=== PATIENT | male | born 1935 | race Caucasian/White ===

== ENCOUNTER 2018-09-15 07:24 | Day surgery (SDC) | payer MEDICARE, BC ==
[2018-09-15] MEDS ORDERED: Sodium Chloride 0.9% 10 ML Syringe FLUSH PRN (07:25)
[2018-09-15] MEDS ORDERED: Lidocaine 1%/Sod Bicarbonate in NS 8.4% 1 ML Syringe IDERM PRN (07:25)
[2018-09-15] MEDS ORDERED: Sodium Chloride 0.9% 1,000 ML IV SCH (07:30)
--- NOTE | 2018-09-15 08:05 | PCM.PREANE ---
Preanesthetic Assessment - Anesthesia/Transfusion/Family Hx Anesthesia History: Prior Anesthesia Without Reaction Family History of Anesthesia Reaction: No - Review of Systems General: No Symptoms, Other (CRD stage 3) Pulmonary: No Symptoms Cardiovascular: Other (HTN, CAD with CABG and AVR EKG 08/08/18 sr with 1avb with PAC) Gastrointestinal: No Symptoms Neurological: No Symptoms Other: Reports: Thyroid Problems - Physical Assessment NPO Status Date: 09/14/18 NPO Status Time: 21:00 Pulse: 63 O2 Sat by Pulse Oximetry: 98 Respiratory Rate: 16 Blood Pressure: 158/63 ASA Class: 3 Mental Status: Alert & Oriented x3 Airway Class: Mallampati = 2 Dentition: Reports: Normal Dentition Thyro-Mental Finger Breadths: 3 Mouth Opening Finger Breadths: 3 ROM/Head Extension: Full Lungs: Clear to Auscultation, Normal Respiratory Effort - Allergies Allergies/Adverse Reactions: Allergies Allergy/AdvReac Type Severity Reaction Status Date / Time levofloxacin [From Levaquin] Allergy Pain Verified 03/18/15 22:17 - Blood Blood Available: No Product(s) Available: None - Anesthesia Plan Pre-Op Medication Ordered: None Beta Navid: Metoprolol Med Last Dose Date: 09/15/18 Med Last Dose Time: 05:00 - Acknowledgements Anesthesia Type Planned: MAC Pt an Appropriate Candidate for the Planned Anesthesia: Yes Alternatives and Risks of Anesthesia Discussed w Pt/Guardian: Yes Pt/Guardian Understands and Agrees with Anesthesia Plan: Yes PreAnesthesia Questionnaire Other Dermatologic History: eczema - HOME MEDS Home Medications: Home Meds Dutasteride [Avodart] 0.5 mg PO DAILY 03/18/15 [History] RX: Aspirin 1 tab PO DAILY 03/18/15 [History] RX: Doxazosin [Cardura] 4 mg PO BID 03/18/15 [History] RX: Lisinopril 10 mg PO DAILY 03/18/15 [History] RX: Metoprolol Tartrate 50 mg PO BID 03/18/15 [History] RX: Simvastatin [Zocor] 10 mg PO DAILY 03/18/15 [History] RX: Spironolactone [Aldactone] 25 mg PO DAILY 03/18/15 [History] Triamcinolone Acetonide [Nasacort AQ [place]] 1 puff NASBOTH BID 03/18/15 [History ] - CURRENT (IN HOUSE) MEDS Current Meds: Current Medications Sodium Chloride (Normal Saline) 1,000 mls @ 125 mls/hr IV ASDIRECTED PREMA Stop: 09/15/18 23:00 Lidocaine/Sodium Bicarbonate (Buffered Lidocaine 1% In Ns 8.4%) 0.25 ml IDERM ONETIME PRN PRN Reason: Prior to IV Start Stop: 09/15/18 23:00 Sodium Chloride (Saline Flush) 10 ml FLUSH ASDIRECTED PRN PRN Reason: Keep Vein Open Stop: 09/15/18 23:00
[2018-09-15] MEDS ORDERED: Propofol 200 MG/20 ML SDV ONE (08:14)
[2018-09-15] MEDS ORDERED: ePHEDrine/Normal Saline 25 MG/5 ML Syringe ONE (08:43)
--- NOTE | 2018-09-15 09:10 | PCM48HPAN ---
Post Anesthesia Note - EVALUATION WITHIN 48HRS OF ANESTHETIC Vital Signs in Normal Range: Yes Patient Participated in Evaluation: Yes Respiratory Function Stable: Yes Airway Patent: Yes Cardiovascular Function Stable: Yes Hydration Status Stable: Yes Pain Control Satisfactory: Yes Nausea and Vomiting Control Satisfactory: Yes Mental Status Recovered: Yes Pulse Rate: 63 Resp Rate: 16 Blood Pressure: 158/63
--- NOTE | 2018-09-15 09:12 | PCM.OPNOTE ---
- General Post-Op/Procedure Note Date of Surgery/Procedure: 09/15/18 Operative Procedure(s): colonosocopy with polypectomy Pre Op Diagnosis: positive cologuard Post-Op Diagnosis: Same Anesthesia Technique: MAC Primary Surgeon: Varun Fields EBL in mLs: 0 Complications: None Condition: Good
[2018-09-15 09:43] VITALS: BP 130/78
--- NOTE | 2018-09-16 07:14 | OR ---
DATE OF OPERATION: 09/15/2018 SURGEON: Varun Fields MD PREOPERATIVE DIAGNOSIS: Positive Cologuard. POSTOPERATIVE DIAGNOSIS: Positive Cologuard. OPERATION PERFORMED: Colonoscopy to cecum with removal of polyp by hot cautery snare at 60 cm, but was not retrieved. It was completely removed and hemoclips placed on the polypectomy site. ESTIMATED BLOOD LOSS: None and no bleeding. ANESTHESIA: Done under IV sedation. DESCRIPTION OF PROCEDURE: The patient was taken to the endoscopy room, placed in a supine position, connected to monitoring equipment, given IV sedation, placed in the left lateral position. Perianal area was inspected and was normal. Rectal exam showed good sphincter tone. A video Olympus colonoscope was then introduced into the rectum and threaded up without problem to the cecum, where the appendicular orifice and ileocecal valve were noted. Prep was excellent. [place] Cleansing Score grade A and the scope slowly withdrawn showing the cecum, ascending colon, transverse colon, descending colon, sigmoid colon, and rectum. At about 60 cm, a sessile diminutive polyp was noted. This was lassoed with cautery snare and removed and it popped away and efforts to retrieve it were unsuccessful. The polypectomy site was then secured with 2 clips. He had history of starting Xarelto. The patient tolerated the procedure, sent to the recovery room in a stable condition, and will be followed up in the clinic. MMBEE /[id number]
== END 2018-09-15 09:45 | disposition home or self-care (01) ==
LOC: JD.SDS 07:24
PROVIDERS: ATTEND Surgery
DX: R19.5 Other fecal abnormalities (principal); K63.5 Polyp of colon; I12.9 Hypertensive chronic kidney disease with stage 1 through stage 4 chronic kidney disease, or unspecified chronic kidney disease; N18.3 Chronic kidney disease, stage 3 (moderate); I48.0 Paroxysmal atrial fibrillation; Z87.891 Personal history of nicotine dependence; Z79.01 Long term (current) use of anticoagulants; Z80.0 Family history of malignant neoplasm of digestive organs; Z88.1 Allergy status to other antibiotic agents
CPT/HCPCS: 45385; J2704; J7040; J7050; 00812

== ENCOUNTER 2018-12-14 12:11 | Emergency (ER) | payer MEDICARE, BC ==
[2018-12-14 12:25] VITALS: BP 131/96
--- NOTE | 2018-12-14 13:06 | EDM.PDOC ---
ED HPI GENERAL MEDICAL PROBLEM - General Chief Complaint: Lower Extremity Injury/Pain Stated Complaint: RIGHT LEG INJURY Time Seen by Provider: 12/14/18 12:20 Source of Information: Reports: Patient, Family History Limitations: Reports: No Limitations - History of Present Illness INITIAL COMMENTS - FREE TEXT/NARRATIVE: The patient presents with left low back pain and right ankle pain and swelling. He was opening a gate yesterday and it was to heavy and it knocked him back and he fell. He did not hit his head or hurt his neck. He did not have much pain to the right ankle but he does have swelling and ecchymosis now. He now has pain to his left low back. He has no chest pain or shortness of breath. He has no abdominal pain, nausea or vomiting. He has no hip pain. He is on eliquis for A-fib. Onset: Sudden Duration: Day(s): Location: Reports: Back, Lower Extremity, Right (right ankle) Quality: Reports: Sharp Severity: Mild Improves with: Reports: Immobilization Worsens with: Reports: Movement Context: Reports: Trauma (fall) Associated Symptoms: Reports: No Other Symptoms Right Lower Ankle Pain Score (Numeric/FACES): 2 - Related Data Allergies Allergy/AdvReac Type Severity Reaction Status Date / Time levofloxacin [From Levaquin] AdvReac Other Verified 12/14/18 12:25 Home Meds: Home Meds Aspirin 81 mg PO DAILY 03/18/15 [History] Doxazosin [Cardura] 4 mg PO BID 03/18/15 [History] Dutasteride [Avodart] 0.5 mg PO DAILY 03/18/15 [History] Simvastatin [Zocor] 20 mg PO QPM 03/18/15 [History] Spironolactone [Aldactone] 25 mg PO DAILY 03/18/15 [History] Triamcinolone Acetonide [Nasacort AQ [place]] 1 puff NASBOTH BID 03/18/15 [History ] Ca/D3/Mag#11/Zinc/Driving Teacher/Jaya/Bor [Caltrate Plus Tablet] 1 tab PO QPM 09/15/18 [ History] Fish Oil/DHA/EPA [Fish Oil 1,200 MG] 1,200 mg PO DAILY 09/15/18 [History] L.acidoph,Paracasei, B.lactis [Probiotic] 1 cap PO DAILY 09/15/18 [History] Lisinopril 5 mg PO BID 09/15/18 [History] Metoprolol Tartrate 25 mg PO BID 09/15/18 [History] Multivit-Min/FA/Lycopene/Lut [Centrum Silver Ultra Men's] 1 tab PO DAILY [History] Sildenafil Citrate [Sildenafil] 100 mg PO ASDIRECTED 09/15/18 [History] Ubidecarenone [Co Q-10] 100 mg PO DAILY 09/15/18 [History] Past Medical History HEENT History: Reports: Cataract, Impaired Vision, Otitis Media, Other (See Below) Other HEENT History: Conjunctival hemorrhage Cardiovascular History: Reports: Afib, CAD, Heart Failure, High Cholesterol, Hypertension, Other (See Below) Other Cardiovascular History: Palpitations, edema Respiratory History: Reports: Other (See Below) Other Respiratory History: Pneumonia, bronchitis Gastrointestinal History: Reports: Colon Polyp, Diverticulosis, Other (See Below ) Other Gastrointestinal History: Benign neoplasm of colon, diarrhea Genitourinary History: Reports: Prostate Disorder, Other (See Below) Other Genitourinary History: Chronic Kidney Disease stage III Musculoskeletal History: Reports: Other (See Below) Other Musculoskeletal History: Backache, ankle pain, foot pain, shoulder, pain Other Neuro History: Transient cerebral ischemia Psychiatric History: Reports: None Endocrine/Metabolic History: Reports: None Hematologic History: Reports: None Immunologic History: Reports: None Oncologic (Cancer) History: Reports: None Dermatologic History: Reports: Eczema, Other (See Below) Other Dermatologic History: eczema - Past Surgical History HEENT Surgical History: Reports: Cataract Surgery Cardiovascular Surgical History: Reports: Coronary Artery Bypass, Valve Replacement Other Cardiovascular Surgeries/Procedures: Aortic heart valve replacement Respiratory Surgical History: Reports: None GI Surgical History: Reports: Appendectomy, Colonoscopy Other GI Surgeries/Procedures: Umbilical hernia repair Male Surgical History: Reports: Prostate Biopsy Endocrine Surgical History: Reports: None Neurological Surgical History: Reports: None Musculoskeletal Surgical History: Reports: None Oncologic Surgical History: Reports: None Social & Family History - Family History Family Medical History: Noncontributory - Tobacco Use Smoking Status *Q: Never Smoker - Caffeine Use Caffeine Use: Reports: Coffee - Recreational Drug Use Recreational Drug Use: No Review of Systems - Review of Systems Review Of Systems: See Below Constitutional: Reports: No Symptoms Eyes: Reports: No Symptoms Ears: Reports: No Symptoms Nose: Reports: No Symptoms Mouth/Throat: Reports: No Symptoms Respiratory: Reports: No Symptoms Cardiovascular: Reports: No Symptoms GI/Abdominal: Reports: No Symptoms Genitourinary: Reports: No Symptoms Musculoskeletal: Reports: Back Pain, Other (Right lowe leg edema and pain) ED EXAM, GENERAL - Physical Exam Exam: See Below Exam Limited By: No Limitations General Appearance: Alert, No Apparent Distress Ears: Normal External Exam Nose: Normal Inspection Head: Atraumatic, Normocephalic Neck: Normal Inspection Respiratory/Chest: No Respiratory Distress, Lungs Clear, Normal Breath Sounds Cardiovascular: Regular Rate, Rhythm, No Edema, No Murmur GI/Abdominal: Soft, Non-Tender, No Organomegaly, No Mass Back Exam: Other (Mild pain upon palpation to the left lower back) Extremities: Other (Pain upon palpation to the distal right lower leg with moderate edema and ecchymosis. Good sensation and pulses distally.) Course - Vital Signs Last Recorded V/S: Last Vital Signs Temp 98.0 F 12/14/18 12:19 Pulse 88 12/14/18 12:19 Resp 12 12/14/18 12:19 BP 131/96 H 12/14/18 12:19 Pulse Ox 99 12/14/18 12:19 - Orders/Labs/Meds Orders: Active Orders 24 hr Category Date Time Status Lumbar Spine 2 or 3V [CR] Stat Exams 12/14/18 12:34 Taken Tibia Fibula Rt [CR] Stat Exams 12/14/18 12:34 Taken VL Duplex Lwr Ext Veins Ltd Rt [US] Stat Exams 12/14/18 12:35 Taken - Re-Assessments/Exams Free Text/Narrative Re-Assessment/Exam: 12/14/18 13:06 I ordered an x-ray of his lumbar spine, right tib/fib and and US of his right leg. 12/14/18 14:59 The US shows no DVT. His x-rays look good. He has some scoliosis of the spine and arthritis but nothing acute. Departure - Departure Time of Disposition: 15:00 Disposition: Home, Self-Care 01 Condition: Good Clinical Impression: Contusion of right leg Qualifiers: Encounter type: initial encounter Qualified Code(s): S80.11XA - Contusion of right lower leg, initial encounter Lumbar strain Qualifiers: Encounter type: initial encounter Qualified Code(s): S39.012A - Strain of muscle, fascia and tendon of lower back, initial encounter - Discharge Information *PRESCRIPTION DRUG MONITORING PROGRAM REVIEWED*: Not Applicable *COPY OF PRESCRIPTION DRUG MONITORING REPORT IN PATIENT HA: Not Applicable Referrals: Anival Byers MD [Primary Care Provider] - Forms: ED Department Discharge Additional Instructions: Elevate your leg above your heart as much as you can for 2 days. Ice your leg for 15 minutes 3 times per day fo 2 days. Take tylenol for pain. Please return if you are worse. - My Orders Last 24 Hours: My Active Orders 12/14/18 12:34 Lumbar Spine 2 or 3V [CR] Stat Tibia Fibula Rt [CR] Stat 12/14/18 12:35 VL Duplex Lwr Ext Veins Ltd Rt [US] Stat - Assessment/Plan Last 24 Hours: My Active Orders 12/14/18 12:34 Lumbar Spine 2 or 3V [CR] Stat Tibia Fibula Rt [CR] Stat 12/14/18 12:35 VL Duplex Lwr Ext Veins Ltd Rt [US] Stat
--- NOTE | 2018-12-15 07:17 | US ---
Right lower extremity deep venous ultrasound: Duplex and color flow imaging was obtained of the right common femoral, proximal greater saphenous, superficial femoral, popliteal, posterior tibial and peroneal veins. Left common femoral vein was also evaluated. Comparison: No previous study. Findings: Complicated fluid filled structure noted within the right ankle. This is most likely due to hematoma measuring up to 3.0 cm. Deep veins show normal phasic flow, augmentation and compression. Impression: 1. Findings which are felt compatible with hematoma within the right ankle. 2. No evidence of deep venous thrombosis within the right lower extremity or left common femoral vein. Diagnostic code #3 I agree with preliminary report from [facility], finalized on 12/14/18, 3:15 PM Central Time
--- NOTE | 2018-12-15 07:17 | CR ---
Right tibia and fibula: AP and lateral views of the right tibia and fibula were obtained. Comparison: No prior tibia or fibula exam. Plantar spur is noted. Vascular calcification is seen. Minimal joint space narrowing is seen medially within the knee. No acute fracture or other bony abnormality is identified. Impression: 1. Findings as noted above. Nothing acute is appreciated on two-view right tibia and fibula exam. Diagnostic code #2
--- NOTE | 2018-12-15 08:02 | CR ---
Lumbar spine: AP and lateral views of the lumbar spine were obtained. Comparison: Prior lumbar spine study of 07/03/12. Mild scattered endplate osteophytes are seen. Vertebral body heights are maintained. Scattered posterior disc space narrowing is seen. Osteopenia is noted. Minimal scoliosis is present. Pedicles as well as visualized transverse and spinous processes are intact. Diffuse vascular calcification is noted. Degenerative change appears to be present within the L4-L5 and L5-S1 apophyseal joints. Impression: 1. Mild diffuse degenerative change. 2. Other incidental findings. 3. Nothing acute is appreciated. Diagnostic code #2
== END 2018-12-14 15:27 | disposition home or self-care (01) ==
LOC: JD.ED 12:11
DX: S39.012A Strain of muscle, fascia and tendon of lower back, initial encounter (principal); S80.11XA Contusion of right lower leg, initial encounter; I25.10 Atherosclerotic heart disease of native coronary artery without angina pectoris; I48.91 Unspecified atrial fibrillation; I13.0 Hypertensive heart and chronic kidney disease with heart failure and stage 1 through stage 4 chronic kidney disease, or unspecified chronic kidney disease; I50.9 Heart failure, unspecified; N18.3 Chronic kidney disease, stage 3 (moderate); Z90.49 Acquired absence of other specified parts of digestive tract; Z98.49 Cataract extraction status, unspecified eye; Z95.1 Presence of aortocoronary bypass graft; Z79.82 Long term (current) use of aspirin; Z79.899 Other long term (current) drug therapy; Z88.1 Allergy status to other antibiotic agents; W19.XXXA Unspecified fall, initial encounter
CPT/HCPCS: 72100; 72100-26; 73590-26-RT; 73590-RT; 93971-26-RT; 93971-RT; 99282; 99284-25

== ENCOUNTER 2020-09-02 17:33 | Emergency (ER) | payer MEDICARE, BC ==
--- NOTE | 2020-09-02 17:45 | EDM.PDOC ---
ED HPI GENERAL MEDICAL PROBLEM - General Chief Complaint: Cardiovascular Problem Stated Complaint: CHF Time Seen by Provider: 09/02/20 17:43 Source of Information: Reports: Patient History Limitations: Reports: No Limitations - History of Present Illness INITIAL COMMENTS - FREE TEXT/NARRATIVE: 84-year-old male presents to the ED per request of his primary care physician Dr. Byers. Patient is retaining a great deal of fluid from terminal congestive heart failure and oral Lasix is no longer helping. Patient is apparently has gained approximately 12 pounds of weight in the last 2 weeks. Patient fell and suffered a compression fracture of vertebral 2 vertebra about 6 weeks ago. MRI done last week revealed a recent compression fracture at L2 and he has been set up to have a kyphoplasty in [place] at [facility] on Saturday, September 07. He was sent to the ED primarily for admission to the hospital for IV Lasix therapy IV and diuresis hopefully in an effort to improve his health good enough to pursue a kyphoplasty. Patient has known valvular heart disease having had a aortic valve replaced at the [facility] about 5 years ago. Recently it had been checked and the cardiovascular surgeon was happy with the valve at that time. He admits he is short of breath on minimal exertion. He is finding it extremely hard to sleep recently due to back pain and suffering insomnia as well. He is currently on 880 mg of Lasix twice daily and continues to gain weight. Apparently chest x-ray done at the clinic today revealed bilateral pleural effusions. I do not have that chest x-ray at this time. We will work on getting his labs that were done earlier today from [facility] as well as his chest x-ray before subjecting him to further lab analysis. Onset: Gradual Onset Date: 08/18/20 (Believes he is gained about 12 pounds of weight over the last 2 weeks.) Duration: Day(s):, Getting Worse Location: Reports: Chest, Lower Extremity, Left, Lower Extremity, Right, Other (Patient is experience increased swelling in both lower extremities up to his knees. Increased shortness of breath and apparently increased evidence of pleural effusion on chest x-ray done today.) Quality: Reports: Other (Dyspnea) Severity: Moderate Improves with: Reports: None Worsens with: Reports: Other, Movement Context: Denies: Activity, Exercise, Lifting (Walking or activity.), Sick Contact, Trauma, Other Associated Symptoms: Reports: Cough, Loss of Appetite, Malaise, Shortness of Breath, Weakness, Other (Omnia problems). 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 (see below) (No recent changes to medications.) - Related Data Allergies Allergy/AdvReac Type Severity Reaction Status Date / Time levofloxacin [From Levaquin] AdvReac Other Verified 09/02/20 17:51 Home Meds: Home Meds Aspirin 81 mg PO DAILY 03/18/15 [History] Doxazosin [Cardura] 4 mg PO BID 03/18/15 [History] Dutasteride [Avodart] 0.5 mg PO DAILY 03/18/15 [History] Simvastatin [Zocor] 20 mg PO QPM 03/18/15 [History] Spironolactone [Aldactone] 25 mg PO DAILY 03/18/15 [History] Triamcinolone Acetonide [Nasacort AQ [place]] 1 puff NASBOTH BID 03/18/15 [History] Ez/D3/Mag11/Zinc/Crab Catcher/Jaya/Bor [Caltrate Plus Tablet] 1 tab PO QPM 09/15/18 [History] Fish Oil/DHA/EPA [Fish Oil 1,200 MG] 1,200 mg PO DAILY 09/15/18 [History] L.acidoph,Paracasei, B.lactis [Probiotic] 1 cap PO DAILY 09/15/18 [History] Lisinopril 5 mg PO BID 09/15/18 [History] Metoprolol Tartrate 25 mg PO BID 09/15/18 [History] Multivit-Min/FA/Lycopen/Lutein [Centrum Silver Ultra Men's] 1 tab PO DAILY 09/15/18 [History] Sildenafil Citrate [Sildenafil] 100 mg PO ASDIRECTED 09/15/18 [History] Ubidecarenone [Co Q-10] 100 mg PO DAILY 09/15/18 [History] Past Medical History HEENT History: Reports: Cataract, Impaired Vision, Otitis Media, Other (See Below) Other HEENT History: Conjunctival hemorrhage Cardiovascular History: Reports: Afib, CAD, Heart Failure, Heart Valve Replacement (Aortic valve replacement my [facility] 5 years ago), High Cholest robin, Hypertension, PVD, SOB on Exertion, Other (See Below) Other Cardiovascular History: Palpitations, edema Respiratory History: Reports: Other (See Below) Other Respiratory History: Pneumonia, bronchitis Gastrointestinal History: Reports: Colon Polyp, Diverticulosis, Other (See Below) Other Gastrointestinal History: Benign neoplasm of colon, diarrhea Genitourinary History: Reports: Prostate Disorder, Other (See Below) Other Genitourinary History: Chronic Kidney Disease stage III Musculoskeletal History: Reports: Osteoporosis, Other (See Below) Other Musculoskeletal History: Backache, ankle pain, foot pain, shoulder, pain. Recent compression fracture lumbar 2 vertebra confirmed by MRI last week. Scheduled for potential kyphoplasty next week in [place] on Monday, September 07, 2020 Other Neuro History: Transient cerebral ischemia Psychiatric History: Reports: None Endocrine/Metabolic History: Reports: None Hematologic History: Reports: None Immunologic History: Reports: None Oncologic (Cancer) History: Reports: None Dermatologic History: Reports: Eczema, Other (See Below) Other Dermatologic History: eczema - Past Surgical History HEENT Surgical History: Reports: Cataract Surgery Cardiovascular Surgical History: Reports: Coronary Artery Bypass, Valve Replacement Other Cardiovascular Surgeries/Procedures: Aortic heart valve replacement Respiratory Surgical History: Reports: None GI Surgical History: Reports: Appendectomy, Colonoscopy Other GI Surgeries/Procedures: Umbilical hernia repair Male Surgical History: Reports: Prostate Biopsy Endocrine Surgical History: Reports: None Neurological Surgical History: Reports: None Musculoskeletal Surgical History: Reports: None Oncologic Surgical History: Reports: None Social & Family History - Family History Family Medical History: No Pertinent Family History - Caffeine Use Caffeine Use: Reports: Coffee - Living Situation & Occupation Living situation: Reports: Occupation: Employed [employer] GENER[employer] - Review of Systems Review Of Systems: See Below Constitutional: Reports: Malaise, Weakness, Fatigue, Decreased Appetite, Weight Gain (Gained about 12 pounds of weight in the last 14 days.). Denies: Fever, Chills HEENT: Reports: Glasses ( due to macular degeneration.), Other (Acuity problems) Respiratory: Reports: Shortness of Breath, Cough, Sputum. Denies: Wheezing, Pleuritic Chest Pain, Hemoptysis, Other (Nonproductive occasional white sputum) Cardiovascular: Reports: Blood Pressure Problem, Dyspnea on Exertion (Gait is normal orthopnea chronic severe dependent edema both lower extremities up to the knees bilaterally.), Edema, Orthopnea, Palpitations. Denies: Chest Pain, Claudication (Often runs on the low side.) Endocrine: Reports: Fatigue GI/Abdominal: Reports: Constipation, Decreased Appetite (Gradually decreased appetite.). Denies: Abdominal Pain, Nausea (Occasional constipation issues), Stool Incontinence, Vomiting : Reports: Frequency, Other (Dysuria x3. Known BPH) Musculoskeletal: Reports: Neck Pain, Shoulder Pain, Back Pain, Other (Recent compression fracture lumbar 2 vertebra from a fall 6 weeks ago. 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 He fell in his kitchen 3 days ago), Weakness (Eat sometimes). Denies: Confusion, Dizziness, Headache, Numbness Psychiatric: Reports: No Symptoms ( without apparent injury.) Hematologic/Lymphatic: Reports: No Symptoms Immunologic: Reports: No Symptoms ED EXAM, GENERAL - Physical Exam Exam: See Below Exam Limited By: No Limitations General Appearance: Alert, WD/WN, Mild Distress, Other (She has severe kyphosis and difficulty looking in the eye to speak. However he is completely oriented to person place and time. Vital signs show a temperature of 36.8. Heart rate is 112/min and irregularly irregular. Respiratory it is 18 with O2 sats of 99% on room air. BP 111/49.) Eye Exam: Bilateral Eye: Normal Fundi (Very mild blepharal pallor. No scleral icterus.), PERRL Throat/Mouth: Normal Inspection, Normal Lips, Normal Oropharynx, Other Head: Atraumatic, Normocephalic (Is mildly dry and coated) Neck: Normal Inspection, Supple, Non-Tender, Carotid Bruit (Referred from aortic valve replacement into the right carotid artery), Limited Range of Motion, Tend er Lateral (Mild bilaterally. He states no worse than normal.). No: Lymphadenopathy (L), Lymphadenopathy (R) Respiratory/Chest: Respiratory Distress, Decreased Breath Sounds (Mild tachypnea at rest. Breath sounds are severely diminished to both lung bases. Dullness to percussion bilaterally worse on the left side versus the right.), Rales (Rales both lower lobes of the lungs), Other (Severe kyphosis thoracic spine creates a restrictive lung component to his illness.). No: Lungs Clear, Normal Breath Sounds Cardiovascular: JVD (3 cm below the angle of the right mandible.), Diastolic Murmur (Suspect diastolic murmur at the mitral listening post as well.), Systolic Murmur (Grade 2-3 pansystolic ejection murmur heard best at the left lateral sternal border compatible with aortic stenosis. I think there is an early diastolic murmur here as well compatible with a aortic insufficiency murmur.), Irregularly Irregular (Atrial fibrillation clinically.), Other. No: Normal Peripheral Pulses (Pulses are palpable below the femorals due to severe dependent edema up past his knees.), Regular Rate, Rhythm, No Edema Peripheral Pulses: 0: Posterior Tibial (L) (Pulses palpable below the femorals due to severe dependent edema both lower extremities.), Posterior Tibial (R), Dorsalis Pedis (L), Dorsalis Pedis (R), 2+: Carotid (L), Carotid (R) GI/Abdominal: Normal Bowel Sounds, Soft, No Mass, Pelvis Stable, Hepatomegaly (Liver is palpable 3 fingerbreadths below the right costal margin with a p ositive hepatojugular reflex.). No: Distended, Abnormal Bowel Sounds (Male) Exam: No Hernia Extremities: Pedal Edema, Other (Plus pitting edema up above the knees bilaterally. No open ulcerations or wounds on the lower extremities. No oozing of serous material identified on my cursory examination) Neurological: Alert, Oriented, CN II-XII Intact, Normal Cognition, Abnormal Gait (Healthy walking due to the amount of edema in both lower extremities he has a waddling shuffling gait.) Psychiatric: Normal Affect, Normal Mood Skin Exam: Warm, Dry, Intact, Pallor (Right pallor.) #1 Interpretation EKG Date: 09/02/20 Time: 18:53 Rhythm: A-Fib (With a rate of 50 to 110 bpm) Rate (Beats/Min): 78 Lincoln: LAD-Left Lincoln Deviation P-Wave: Absent QRS: Other (Suspect left ventricle hypertrophy with strain pattern Q waves leads III and aVF consider old inferior wall myocardial infarction) QT: Prolonged (Moderately prolonged) EKG Interpretation Comments: Abnormal ECG Course - Vital Signs Last Recorded V/S: Last Vital Signs Temp 36.8 C 09/02/20 17:45 Pulse 112 H 09/02/20 17:45 Resp 18 09/02/20 17:45 BP 111/49 L 09/02/20 17:45 Pulse Ox 99 09/02/20 17:45 - Orders/Labs/Meds Orders: Active Orders 24 hr Category Date Time Status EKG Documentation Completion [RC] STAT Care 09/02/20 18:47 Active Labs: Laboratory Tests 09/02/20 09/02/20 09/02/20 Range/Units 17:45 17:45 17:45 WBC 10.41 H (4.23-9.07) K/mm3 RBC 4.81 (4.63-6.08) M/mm3 Hgb 13.9 (13.7-17.5) gm/dl Hct 44.1 (40.1-51.0) % MCV 91.7 D (79.0-92.2) fl MCH 28.9 (25.7-32.2) pg MCHC 31.5 L (32.2-35.5) g/dl RDW Std Deviation 57.9 H (35.1-43.9) fL Plt Count 196 (163-337) K/mm3 MPV 11.1 (9.4-12.3) fl Neut % (Auto) 71.8 H (34.0-67.9) % Lymph % (Auto) 16.4 L (21.8-53.1) % [place] % (Auto) 10.0 (5.3-12.2) % Eos % (Auto) 1.2 (0.8-7.0) Baso % (Auto) 0.3 (0.1-1.2) % Neut # (Auto) 7.48 H (1.78-5.38) K/mm3 Lymph # (Auto) 1.71 (1.32-3.57) K/mm3 [place] # (Auto) 1.04 H (0.30-0.82) K/mm3 Eos # (Auto) 0.12 (0.04-0.54) K/mm3 Baso # (Auto) 0.03 (0.01-0.08) K/mm3 Manual Slide Review Abnormal smear PT 12.3 H (9.7-12.0) SECONDS INR 1.15 APTT 26.7 (21.7-31.4) SECONDS Sodium 147 H (136-145) mEq/L Potassium 3.2 L (3.5-5.1) mEq/L Chloride 103 (98-107) mEq/L Carbon Dioxide 34 H (21-32) mEq/L Anion Gap 13.2 (5-15) BUN 73 H D (7-18) mg/dL Creatinine 2.3 H (0.7-1.3) mg/dL Est Cr Clr Drug Dosing TNP Estimated GFR (MDRD) 27 (>60) mL/min BUN/Creatinine Ratio 31.7 H (14-18) Glucose 91 (83-115) mg/dL Calcium 9.8 (8.5-10.1) mg/dL Magnesium 2.9 H (1.8-2.4) mg/dl Total Bilirubin 1.2 H (0.2-1.0) mg/dL AST 42 H (15-37) U/L ALT 61 (16-63) U/L Alkaline Phosphatase 111 (46-116) U/L Troponin I 1.184 H* (0.00-0.056) ng/mL C-Reactive Protein 2.1 H* (<1.0) mg/dL NT-Pro-B Natriuret Pep (0-450) pg/mL Total Protein 7.4 (6.4-8.2) g/dl Albumin 3.1 L (3.4-5.0) g/dl Globulin 4.3 gm/dL Albumin/Globulin Ratio 0.7 L (1-2) Urine Color (Yellow) Urine Appearance (Clear) Urine pH (5.0-8.0) Ur Specific Valentine (1.005-1.030) Urine Protein (Negative) Urine Glucose (UA) (Negative) Urine Ketones (Negative) Urine Occult Blood (Negative) Urine Nitrite (Negative) Urine Bilirubin (Negative) Urine Urobilinogen (0.2-1.0) Ur Leukocyte Esterase (Negative) Urine RBC (0-5) /hpf Urine WBC (0-5) /hpf Ur Squamous Epith Cells (0-5) /hpf Urine Bacteria (FEW) /hpf Urine Mucus (FEW) /hpf SARS-CoV-2 RNA (ROBE) (NEGATIVE) 03/09/02/20 09/02/20 Range/Units 17:45 19:14 19:19 WBC (4.23-9.07) K/mm3 RBC (4.63-6.08) M/mm3 Hgb (13.7-17.5) gm/dl Hct (40.1-51.0) % MCV (79.0-92.2) fl MCH (25.7-32.2) pg MCHC (32.2-35.5) g/dl RDW Std Deviation (35.1-43.9) fL Plt Count (163-337) K/mm3 MPV (9.4-12.3) fl Neut % (Auto) (34.0-67.9) % Lymph % (Auto) (21.8-53.1) % Carl[place] % (Auto) (5.3-12.2) % Eos % (Auto) (0.8-7.0) Baso % (Auto) (0.1-1.2) % Neut # (Auto) (1.78-5.38) K/mm3 Lymph # (Auto) (1.32-3.57) K/mm3 [place] # (Auto) (0.30-0.82) K/mm3 Eos # (Auto) (0.04-0.54) K/mm3 Baso # (Auto) (0.01-0.08) K/mm3 Manual Slide Review PT (9.7-12.0) SECONDS INR APTT (21.7-31.4) SECONDS Sodium (136-145) mEq/L Potassium (3.5-5.1) mEq/L Chloride (98-107) mEq/L Carbon Dioxide (21-32) mEq/L Anion Gap (5-15) BUN (7-18) mg/dL Creatinine (0.7-1.3) mg/dL Est Cr Clr Drug Dosing Estimated GFR (MDRD) (>60) mL/min BUN/Creatinine Ratio (14-18) Glucose (83-115) mg/dL Calcium (8.5-10.1) mg/dL Magnesium (1.8-2.4) mg/dl Total Bilirubin (0.2-1.0) mg/dL AST (15-37) U/L ALT (16-63) U/L Alkaline Phosphatase (46-116) U/L Troponin I (0.00-0.056) ng/mL C-Reactive Protein (<1.0) mg/dL NT-Pro-B Natriuret Pep > 77815 H (0-450) pg/mL Total Protein (6.4-8.2) g/dl Albumin (3.4-5.0) g/dl Globulin gm/dL Albumin/Globulin Ratio (1-2) Urine Color Yellow (Yellow) Urine Appearance Clear (Clear) Urine pH 5.5 (5.0-8.0) Ur Specific Valentine 1.020 (1.005-1.030) Urine Protein 1+ H (Negative) Urine Glucose (UA) Negative (Negative) Urine Ketones Negative (Negative) Urine Occult Blood Negative (Negative) Urine Nitrite Negative (Negative) Urine Bilirubin Negative (Negative) Urine Urobilinogen 0.2 (0.2-1.0) Ur Leukocyte Esterase Negative (Negative) Urine RBC 0-5 (0-5) /hpf Urine WBC 0-5 (0-5) /hpf Ur Squamous Epith Cells 0-5 (0-5) /hpf Urine Bacteria Few (FEW) /hpf Urine Mucus Few (FEW) /hpf SARS-CoV-2 RNA (ROBE) Negative (NEGATIVE) Meds: Medications Discontinued Medications Generic Name Dose Route Start Last Admin Trade Name Amy PRN Reason Stop Dose Admin Furosemide 80 mg 09/02/20 18:00 09/02/20 18:07 Furosemide 40 Mg/4 Ml Vial IVPUSH 09/02/20 18:01 80 mg NOW ONE Administration - Radiology Interpretation Free Text/Narrative:: 84-year-old male sent to the ED by his primary care provider Dr. Byers. It was my interpretation that the patient been seen in the clinic today with labs and chest x-ray done. However the patient reports that he has gained 12 pounds of weight in the last 14 days and can barely walk due to the severe edema of his lower extremities. I found out later that the lab work that is available to us was done a week ago. Chest x-ray done today reveals bilateral pleural effusions with approximate 40% pleural effusion involving the left lower lung field and 15% of the right lower lung field. Mild associated cardiomegaly. Patient has primarily right-sided heart failure creating severe dependent edema and a strong hepato jugular reflex. - Re-Assessments/Exams Free Text/Narrative Re-Assessment/Exam: 09/02/20 19:15 Labs not yet back. Case discussed with Dr. Gabriel it is now change of shift. He will check on his labs once they become available and discuss the findings with Dr. Velasquez on-call hospitalist as to whether or not patient should be admitted here versus [place]. 09/02/20 20:02 White count is slightly elevated at 10.41. Auto differential shows 71.8% neutrophils. Hemoglobin is 13.9 with hematocrit of 44.1. MCV is 91.7. Platelet count is 196,000. The smear reveals 1+ anisocytosis and 1+ ovalocytes. PT is 12.3 with an INR of 1.15 PTT is 26.7. Sodium is slightly elevated at 147 with a potassium of 3.2. Chloride is 103 with a bicarb of 34 anion gap is 13.2. BUN is elevated at 73 with a creatinine of 2.3 and a GFR of 27 i.e. stage IV renal insufficiency. Glucose is 91 with a calcium of 9.8 magnesium elevated at 2.9. Bilirubin is slightly elevated 1.2 AST is 42 with an ALT of 61. Alk phosphatase is 111. Troponin I is 1.184 C-reactive protein is 2.1 BNP is greater than 35,000. Total protein 7.4 with an albumin fraction of 3 .1 urinalysis reveals 1+ proteinuria. Leukocyte Esterase is negative 09/02/20 20:15: I was able to speak through 1 call service at [facility] in [place] with Dr. Cruz and she is graciously accepted taking this patient in consultation. He needs an echocardiogram and an echo for comparison purposes. Likely will require Lasix drip and prolonged hospitalization greater than 96 hours. I do not believe the patient understands how severe his heart disease is. Patient reports that he has had no ability to get a decent night sleep for greater than 2-1/2 weeks. I suspect this is because of dyspnea that develops when he tries to sleep due to pleural effusions and severe heart failure. His L2 vertebral fracture prevents him from going to bed and he has been having to sleep sitting up for the most part last 6 weeks. He is a high fall risk as he tries to get up in the night to void and can barely walk due to the amount of edema in both lower extremities. He walks with a shuffling type gait. She will be transferred to [place] per ground ambulance. His standards engineer is listed as Dr. Mukherjee. Departure - Departure Time of Disposition: 20:37 Disposition: DC/Tfer to Acute Hospital 02 Reason for Transfer *Q: Other Condition: Poor Clinical Impression: Severe congestive heart failure, Chronic renal insufficiency, stage IV (severe), Hypokalemia, Closed lumbar vertebral fracture Referrals: Anival Byers MD [Primary Care Provider] - Forms: ED Department Discharge Sepsis Event Note (ED) - Focused Exam Vital Signs: Vital Signs Temp Pulse Resp BP Pulse Ox 09/02/20 17:45 36.8 C 112 H 18 111/49 L 99 - My Orders Last 24 Hours: My Active Orders 09/02/20 18:47 EKG Documentation Completion [RC] STAT - Assessment/Plan Last 24 Hours: My Active Orders 09/02/20 18:47 EKG Documentation Completion [RC] STAT
[2020-09-02 17:51] VITALS: BP 111/49; PULSE 112
[2020-09-02] MEDS ORDERED: Furosemide 40 MG/4 ML VIAL IVPUSH ONE (18:00)
--- NOTE | 2020-09-02 20:12 | CR ---
Chest: Portable view of the chest was obtained. Comparison: Prior chest x-ray of 03/04/12. Increased density within the left lung base is noted. Questionable small pleural effusions are seen. Heart is slightly enlarged. Prior sternotomy is noted. Pulmonary vessels may be slightly congested. Impression: 1. Findings suspicious for mild CHF. Atelectasis is seen within the left lung base. Diagnostic code #3
== END 2020-09-02 21:00 ==
LOC: JD.ED 17:33
DX: S32.029A Unspecified fracture of second lumbar vertebra, initial encounter for closed fracture (principal); E87.6 Hypokalemia; I13.0 Hypertensive heart and chronic kidney disease with heart failure and stage 1 through stage 4 chronic kidney disease, or unspecified chronic kidney disease; N18.4 Chronic kidney disease, stage 4 (severe); I50.9 Heart failure, unspecified; I48.91 Unspecified atrial fibrillation; I25.10 Atherosclerotic heart disease of native coronary artery without angina pectoris; E78.00 Pure hypercholesterolemia, unspecified; R94.31 Abnormal electrocardiogram [ECG] [EKG]; M40.209 Unspecified kyphosis, site unspecified; R23.1 Pallor; D72.829 Elevated white blood cell count, unspecified; Z88.1 Allergy status to other antibiotic agents; Z79.82 Long term (current) use of aspirin; Z79.899 Other long term (current) drug therapy; Z20.822 Contact with and (suspected) exposure to COVID-19; W19.XXXA Unspecified fall, initial encounter
CPT/HCPCS: 36415; 71045; 80053; 81001; 83735; 83880; 84484; 85025; 85610; 85730; 86140; 93005; 96374; 99285; J1940; U0002; 93010

== ENCOUNTER 2020-09-16 12:08 | Emergency (ER) | payer MEDICARE, BC ==
[2020-09-16 12:19] VITALS: BP 126/52; PULSE 93
--- NOTE | 2020-09-16 12:53 | EDM.PDOC ---
ED HPI GENERAL MEDICAL PROBLEM - General Chief Complaint: Lower Extremity Injury/Pain Stated Complaint: [facility] Time Seen by Provider: 09/16/20 12:18 Source of Information: Reports: Patient, EMS, Long Term Records History Limitations: Reports: No Limitations - History of Present Illness INITIAL COMMENTS - FREE TEXT/NARRATIVE: The patient presents by [facility] from [facility] for left foot pain. He was just discharged from [facility] yesterday for CHF exacerbation. He was walking with a walker fine and had no pain. This morning he has left foot and ankle pain. He denies any injury. He has no fever, chills, cough, chest pain, shortness of breath, nausea or vomiting. Onset: Gradual Duration: Hour(s): Location: Reports: Lower Extremity, Left (ankle and foot) Quality: Reports: Sharp Severity: Moderate Improves with: Reports: Immobilization Worsens with: Reports: Movement Context: Denies: Trauma Associated Symptoms: Reports: No Other Symptoms Left Feet Pain Score (Numeric/FACES): 4 - Related Data Allergies Allergy/AdvReac Type Severity Reaction Status Date / Time levofloxacin [From Levaquin] AdvReac Other Verified 09/16/20 12:19 Home Meds: Home Meds Aspirin 81 mg PO DAILY 03/18/15 [History] Doxazosin [Cardura] 4 mg PO BID 03/18/15 [History] Dutasteride [Avodart] 0.5 mg PO DAILY 03/18/15 [History] Simvastatin [Zocor] 20 mg PO QPM 03/18/15 [History] Spironolactone [Aldactone] 25 mg PO DAILY 03/18/15 [History] Triamcinolone Acetonide [Nasacort AQ [place]] 1 puff NASBOTH BID 03/18/15 [History] Ez/D3/Mag11/Zinc/Linemarker/Jaya/Bor [Caltrate Plus Tablet] 1 tab PO QPM 09/15/18 [History] Fish Oil/DHA/EPA [Fish Oil 1,200 MG] 1,200 mg PO DAILY 09/15/18 [History] L.acidoph,Paracasei, B.lactis [Probiotic] 1 cap PO DAILY 09/15/18 [History] Lisinopril 5 mg PO BID 09/15/18 [History] Metoprolol Tartrate 25 mg PO BID 09/15/18 [History] Multivit-Min/FA/Lycopen/Lutein [Centrum Silver Ultra Men's] 1 tab PO DAILY 09/15/18 [History] Sildenafil Citrate [Sildenafil] 100 mg PO ASDIRECTED 09/15/18 [History] Ubidecarenone [Co Q-10] 100 mg PO DAILY 09/15/18 [History] cephALEXin [Keflex] 500 mg PO Q8H #40 cap 09/16/20 [Rx] Past Medical History HEENT History: Reports: Cataract, Impaired Vision, Otitis Media, Other (See Below) Other HEENT History: Conjunctival hemorrhage Cardiovascular History: Reports: Afib, CAD, Heart Failure, Heart Valve Replacement, High Cholesterol, Hypertension, PVD, SOB on Exertion, Other (See Below) Other Cardiovascular History: Palpitations, edema Respiratory History: Reports: Other (See Below) Other Respiratory History: Pneumonia, bronchitis Gastrointestinal History: Reports: Colon Polyp, Diverticulosis, Other (See Below) Other Gastrointestinal History: Benign neoplasm of colon, diarrhea Genitourinary History: Reports: Prostate Disorder, Other (See Below) Other Genitourinary History: Chronic Kidney Disease stage III Musculoskeletal History: Reports: Osteoporosis, Other (See Below) Other Musculoskeletal History: Backache, ankle pain, foot pain, shoulder, pain. Recent compression fracture lumbar 2 vertebra confirmed by MRI last week. Scheduled for potential kyphoplasty next week in [place] on Monday, September 07, 2020 Other Neuro History: Transient cerebral ischemia Psychiatric History: Reports: None Endocrine/Metabolic History: Reports: None Hematologic History: Reports: None Immunologic History: Reports: None Oncologic (Cancer) History: Reports: None Dermatologic History: Reports: Eczema, Other (See Below) Other Dermatologic History: eczema - Past Surgical History HEENT Surgical History: Reports: Cataract Surgery Cardiovascular Surgical History: Reports: Coronary Artery Bypass, Valve Replacement Other Cardiovascular Surgeries/Procedures: Aortic heart valve replacement Respiratory Surgical History: Reports: None GI Surgical History: Reports: Appendectomy, Colonoscopy Other GI Surgeries/Procedures: Umbilical hernia repair Male Surgical History: Reports: Prostate Biopsy Endocrine Surgical History: Reports: None Neurological Surgical History: Reports: None Musculoskeletal Surgical History: Reports: None Oncologic Surgical History: Reports: None Dermatological Surgical History: Reports: None Social & Family History - Family History Family Medical History: No Pertinent Family History - Tobacco Use Tobacco Use Status *Q: Never Tobacco User Second Hand Smoke Exposure: No - Caffeine Use Caffeine Use: Reports: None - Recreational Drug Use Recreational Drug Use: No - Living Situation & Occupation Living situation: Reports: Occupation: Employed Review of Systems - Review of Systems Review Of Systems: See Below Constitutional: Reports: No Symptoms Eyes: Reports: No Symptoms Ears: Reports: No Symptoms Nose: Reports: No Symptoms Mouth/Throat: Reports: No Symptoms Respiratory: Reports: No Symptoms Cardiovascular: Reports: No Symptoms GI/Abdominal: Reports: No Symptoms Genitourinary: Reports: No Symptoms Musculoskeletal: Reports: Other (Left ankle and foot pain) Neurological: Reports: No Symptoms ED EXAM, GENERAL - Physical Exam Exam: See Below Exam Limited By: No Limitations General Appearance: Alert, No Apparent Distress Ears: Normal External Exam Nose: Normal Inspection Head: Atraumatic, Normocephalic Neck: Normal Inspection Respiratory/Chest: No Respiratory Distress, Lungs Clear, Normal Breath Sounds Cardiovascular: Systolic Murmur, Irregularly Irregular GI/Abdominal: Soft, Non-Tender, No Organomegaly, No Mass Back Exam: Normal Inspection Extremities: Other (Pain upon palpation to the left foot and ankle with erythema to the left mid foot. Good sensation and pulses.) Course - Vital Signs Last Recorded V/S: Last Vital Signs Temp 98.0 F 09/16/20 12:15 Pulse 93 09/16/20 12:15 Resp 18 09/16/20 12:15 BP 126/52 L 09/16/20 12:15 Pulse Ox 96 09/16/20 12:15 - Orders/Labs/Meds Labs: Laboratory Tests 09/16/20 09/16/20 09/16/20 Range/Units 13:03 13:03 13:03 WBC 12.33 H (4.23-9.07) K/mm3 RBC 4.49 L (4.63-6.08) M/mm3 Hgb 12.9 L (13.7-17.5) gm/dl Hct 40.9 (40.1-51.0) % MCV 91.1 (79.0-92.2) fl MCH 28.7 (25.7-32.2) pg MCHC 31.5 L (32.2-35.5) g/dl RDW Std Deviation 54.5 H (35.1-43.9) fL Plt Count 227 (163-337) K/mm3 MPV 9.7 (9.4-12.3) fl Neut % (Auto) 79.6 H (34.0-67.9) % Lymph % (Auto) 10.5 L (21.8-53.1) % Island % (Auto) 9.1 (5.3-12.2) % Eos % (Auto) 0.4 L (0.8-7.0) Baso % (Auto) 0.1 (0.1-1.2) % Neut # (Auto) 9.81 H (1.78-5.38) K/mm3 Lymph # (Auto) 1.30 L (1.32-3.57) K/mm3 Island # (Auto) 1.12 H (0.30-0.82) K/mm3 Eos # (Auto) 0.05 (0.04-0.54) K/mm3 Baso # (Auto) 0.01 (0.01-0.08) K/mm3 ESR 44 H (0-15) mm/hr Sodium 142 (136-145) mEq/L Potassium 4.7 D (3.5-5.1) mEq/L Chloride 101 (98-107) mEq/L Carbon Dioxide 33 H (21-32) mEq/L Anion Gap 12.7 (5-15) BUN 66 H (7-18) mg/dL Creatinine 2.1 H (0.7-1.3) mg/dL Est Cr Clr Drug Dosing 24.05 mL/min Estimated GFR (MDRD) 30 (>60) mL/min BUN/Creatinine Ratio 31.4 H (14-18) Glucose 109 (83-115) mg/dL Calcium 9.0 (8.5-10.1) mg/dL Total Bilirubin 1.5 H (0.2-1.0) mg/dL AST 31 (15-37) U/L ALT 60 (16-63) U/L Alkaline Phosphatase 100 (46-116) U/L C-Reactive Protein 7.7 H* (<1.0) mg/dL Total Protein 6.9 (6.4-8.2) g/dl Albumin 2.5 L (3.4-5.0) g/dl Globulin 4.4 gm/dL Albumin/Globulin Ratio 0.6 L (1-2) - Re-Assessments/Exams Free Text/Narrative Re-Assessment/Exam: 09/16/20 12:53 I ordered labs and x-rays. 09/16/20 13:50 X-ray of his left foot shows dorsal soft tissue swelling appears to be present. No acute osseous abnormality is appreciated. 09/16/20 13:53 The x-ray of his ankle shows ununited medial malleolus fracture. Plantar spur and vascular calcification. His WBC was slightly elevated at 12.33. His creatinine was elevated at 2.1. His total bili was elevated at 1.5. His CRP is elevated at 7.7. His ESR is elevated at 44. It does not appear he has osteomyolitis. He does have cellulitis. He is not septic. I will give him a shot of rocephin and get him on some keflex. Departure - Departure Time of Disposition: 14:00 Disposition: Home, Self-Care 01 Condition: Good Clinical Impression: Cellulitis Qualifiers: Site of cellulitis: extremity Site of cellulitis of extremity: lower extremity Laterality: left Qualified Code(s): L03.116 - Cellulitis of left lower limb - Discharge Information *PRESCRIPTION DRUG MONITORING PROGRAM REVIEWED*: Not Applicable *COPY OF PRESCRIPTION DRUG MONITORING REPORT IN PATIENT HA: Not Applicable Prescriptions: cephALEXin [Keflex] 500 mg PO Q8H #40 cap Referrals: Anival Byers MD [Primary Care Provider] - 1 Week Forms: ED Department Discharge Additional Instructions: Take your medications as prescribed. Take keflex 4 times per day for 10 days. Put warm compresses on your foot 3 times per day for 15 minutes for 5 days. The redness should look worse for about 2 days and then it should start to look better. Please return if you feel worse like a fever, not feeling worse or more redness and swelling after a couple of days. Sepsis Event Note (ED) - Evaluation Sepsis Screening Result: No Definite Risk - Focused Exam Vital Signs: Vital Signs Temp Pulse Resp BP Pulse Ox 09/16/20 12:15 98.0 F 93 18 126/52 L 96
--- NOTE | 2020-09-16 13:40 | CR ---
Left ankle: 4 views of the left ankle were obtained. Comparison: Prior MRI left ankle study of 03/14/20. Old fracture is noted within the medial malleolus which is ununited. Ankle mortise is symmetric. Plantar spur is noted. Diffuse vascular calcification is seen. Impression: 1. Ununited medial malleolus fracture. 2. Plantar spur and vascular calcification. Diagnostic code #2
--- NOTE | 2020-09-16 13:40 | CR ---
Left foot: 4 views of the left foot were obtained. Comparison: No previous foot exam is available. Plantar spur is noted. Ununited medial malleolus fracture is seen. Soft tissue swelling is noted dorsally. Diffuse vascular calcification is seen. No acute fracture or other osseous abnormality is appreciated. Impression: 1. Dorsal soft tissue swelling appears to be present. 2. Other findings as noted above. No acute osseous abnormality is appreciated. Diagnostic code #2
[2020-09-16] MEDS ORDERED: cefTRIAXone 1 GM, Lidocaine 1% 2.1 ML IM ONE ×2 (13:57)
== END 2020-09-16 14:45 | disposition home or self-care (01) ==
LOC: JD.ED 12:08
DX: L03.116 Cellulitis of left lower limb (principal); I48.91 Unspecified atrial fibrillation; I25.10 Atherosclerotic heart disease of native coronary artery without angina pectoris; E78.00 Pure hypercholesterolemia, unspecified; I13.0 Hypertensive heart and chronic kidney disease with heart failure and stage 1 through stage 4 chronic kidney disease, or unspecified chronic kidney disease; I50.9 Heart failure, unspecified; N18.9 Chronic kidney disease, unspecified; Z88.1 Allergy status to other antibiotic agents; Z79.82 Long term (current) use of aspirin; Z79.899 Other long term (current) drug therapy; Z86.73 Personal history of transient ischemic attack (TIA), and cerebral infarction without residual deficits
CPT/HCPCS: 36415; 73610; 73630; 80053; 85025; 85652; 86140; 96372; 99284; J0696; 99283

== ENCOUNTER 2021-12-06 09:26 | Emergency (ER) | payer MEDICARE, BC ==
[2021-12-06 09:43] VITALS: BP 171/89; PULSE 92
== END 2021-12-06 13:03 | disposition home or self-care (01) ==
LOC: JD.ED 09:26
DX: S80.12XA Contusion of left lower leg, initial encounter (principal); I48.91 Unspecified atrial fibrillation; I25.10 Atherosclerotic heart disease of native coronary artery without angina pectoris; I13.0 Hypertensive heart and chronic kidney disease with heart failure and stage 1 through stage 4 chronic kidney disease, or unspecified chronic kidney disease; N18.30 Chronic kidney disease, stage 3 unspecified; I50.9 Heart failure, unspecified; E78.00 Pure hypercholesterolemia, unspecified; Z88.1 Allergy status to other antibiotic agents; Z79.01 Long term (current) use of anticoagulants; Z79.899 Other long term (current) drug therapy; Z95.1 Presence of aortocoronary bypass graft; W01.0XXA Fall on same level from slipping, tripping and stumbling without subsequent striking against object, initial encounter
CPT/HCPCS: 36415; 73590-26-LT; 73590-LT; 80053; 85025; 85610; 85730; 93971-26-LT; 93971-LT; 99284-25

== ENCOUNTER 2022-01-22 14:06 | Emergency (ER) | payer MEDICARE, BC ==
[2022-01-22 17:23] VITALS: BP 164/94; PULSE 88
== END 2022-01-22 17:44 | disposition home or self-care (01) ==
LOC: JD.ED 14:06
DX: S70.02XA Contusion of left hip, initial encounter (principal); L03.116 Cellulitis of left lower limb; I13.2 Hypertensive heart and chronic kidney disease with heart failure and with stage 5 chronic kidney disease, or end stage renal disease; I50.9 Heart failure, unspecified; N18.30 Chronic kidney disease, stage 3 unspecified; I25.10 Atherosclerotic heart disease of native coronary artery without angina pectoris; Z88.1 Allergy status to other antibiotic agents; W18.30XA Fall on same level, unspecified, initial encounter; Y92.096 Garden or yard of other non-institutional residence as the place of occurrence of the external cause
CPT/HCPCS: 70450; 70450-26; 73502-26-LT; 73502-LT; 93005; 99284

== ENCOUNTER 2022-01-31 08:08 | Inpatient (IN) | payer MEDICARE, BC ==
[2022-01-31] MEDS ORDERED: Sodium Chloride 0.9% 10 ML Syringe FLUSH PRN (10:48)
[2022-01-31] MEDS ORDERED: Acetaminophen 325 MG Tab PO PRN (12:21)
[2022-01-31] MEDS ORDERED: Docusate Sodium 100 MG Cap PO PRN (12:21)
[2022-01-31] MEDS ORDERED: Morphine 2 MG/ML SYRINGE IVPUSH PRN (12:21)
[2022-01-31] MEDS ORDERED: Ondansetron 4 MG/2 ML SDV IV PRN (12:21)
[2022-01-31] MEDS: Cephalexin 500 MG Cap PO SCH ×2 (15:50→21:10)
[2022-01-31] MEDS ORDERED: Cephalexin 500 MG Cap PO SCH (16:00)
[2022-01-31] MEDS ORDERED: Pravastatin 20 MG Tab PO SCH (21:00)
[2022-01-31] MEDS: Apixaban 2.5 MG Tab PO SCH (21:10)
[2022-02-01] MEDS: Cephalexin 500 MG Cap PO SCH ×2 (04:45→09:34)
[2022-02-01] MEDS: traMADol 50 MG Tab PO PRN ×2 (05:29→12:26)
[2022-02-01] MEDS ORDERED: Furosemide 40 MG Tab PO SCH (09:00)
[2022-02-01] MEDS ORDERED: Metoprolol Succinate 25 MG Tab.ER PO SCH (09:00)
[2022-02-01] MEDS ORDERED: Aspirin 81 MG Tab.EC PO SCH (09:00)
[2022-02-01] MEDS ORDERED: Multivitamin Tab PO SCH (09:00)
[2022-02-01] MEDS ORDERED: Iron Polysaccharides Complex 150 MG Cap PO SCH (09:00)
[2022-02-01] MEDS ORDERED: Digoxin 125 MCG Tab PO SCH (09:00)
[2022-02-01] MEDS ORDERED: Lisinopril 5 MG Tab PO SCH (09:00)
[2022-02-01] MEDS ORDERED: Cholecalciferol (Vitamin D3) 25 MCG Tab PO SCH (09:00)
[2022-02-01] MEDS: Apixaban 2.5 MG Tab PO SCH (09:26)
[2022-02-01 11:41] VITALS: BP 145/92; PULSE 72
== END 2022-02-01 12:30 | DRG 536 ==
LOC: JD.ED 08:08 → JD.MS 10:50
PROVIDERS: ADMIT Internal Medicine; ATTEND Internal Medicine
DX: S72.115A Nondisplaced fracture of greater trochanter of left femur, initial encounter for closed fracture (principal); I48.91 Unspecified atrial fibrillation; I48.20 Chronic atrial fibrillation, unspecified; I13.0 Hypertensive heart and chronic kidney disease with heart failure and stage 1 through stage 4 chronic kidney disease, or unspecified chronic kidney disease; I13.10 Hypertensive heart and chronic kidney disease without heart failure, with stage 1 through stage 4 chronic kidney disease, or unspecified chronic kidney disease; M80.00XA Age-related osteoporosis with current pathological fracture, unspecified site, initial encounter for fracture; L03.116 Cellulitis of left lower limb; N18.9 Chronic kidney disease, unspecified; I25.10 Atherosclerotic heart disease of native coronary artery without angina pectoris; Z20.822 Contact with and (suspected) exposure to COVID-19; M81.0 Age-related osteoporosis without current pathological fracture; Z60.9 Problem related to social environment, unspecified; I50.9 Heart failure, unspecified; E78.5 Hyperlipidemia, unspecified; N18.32 Chronic kidney disease, stage 3b; I73.9 Peripheral vascular disease, unspecified; N42.9 Disorder of prostate, unspecified; E78.00 Pure hypercholesterolemia, unspecified; Z79.01 Long term (current) use of anticoagulants; Z95.2 Presence of prosthetic heart valve; Z86.73 Personal history of transient ischemic attack (TIA), and cerebral infarction without residual deficits; Z79.899 Other long term (current) drug therapy; Z79.82 Long term (current) use of aspirin; Z88.1 Allergy status to other antibiotic agents; Z95.1 Presence of aortocoronary bypass graft; W19.XXXA Unspecified fall, initial encounter
CPT/HCPCS: 36415; 71045; 71045-26; 72170; 72170-26; 80048; 80053; 81001; 83735; 83880; 85025; 85610; 85730; 86140; 93005; 93010; 97110-GP; 97116-GP; 97162-GP; 99284; 99285; A9270-GY; J3490; U0002

== ENCOUNTER 2022-05-08 15:19 | Emergency (ER) | payer MEDICARE, BC ==
[2022-05-08] MEDS ORDERED: Sodium Chloride 0.9% 10 ML Syringe FLUSH PRN (16:21)
[2022-05-08 17:11] LABS: ESTIMATED GFR 27 mL/min (>60)
[2022-05-08 18:27] LABS: CORONAVIRUS COVID-19 NAA NEGATIVE (NEGATIVE)
[2022-05-08 19:43] VITALS: BP 163/92; PULSE 60
== END 2022-05-08 19:39 | disposition home or self-care (01) ==
LOC: JD.ED 15:19
DX: R41.0 Disorientation, unspecified (principal); N28.9 Disorder of kidney and ureter, unspecified; I48.91 Unspecified atrial fibrillation; I25.10 Atherosclerotic heart disease of native coronary artery without angina pectoris; E78.00 Pure hypercholesterolemia, unspecified; I13.0 Hypertensive heart and chronic kidney disease with heart failure and stage 1 through stage 4 chronic kidney disease, or unspecified chronic kidney disease; N18.30 Chronic kidney disease, stage 3 unspecified; I50.9 Heart failure, unspecified; Z88.1 Allergy status to other antibiotic agents; Z79.82 Long term (current) use of aspirin; Z79.01 Long term (current) use of anticoagulants; Z79.899 Other long term (current) drug therapy; Z20.822 Contact with and (suspected) exposure to COVID-19
CPT/HCPCS: 0240U; 36415; 70450; 71045; 80053; 81001; 83735; 85025; 86140; 93005; 99285

== ENCOUNTER 2023-03-21 10:39 | Emergency (ER) | payer MEDICARE, BC ==
[2023-03-21 12:08] LABS: BASOPHILS ABSOLUTE AUTO 0.1 K/mm3 (0.0-0.2); BASOPHILS PERCENT AUTO 0.5 % (0.0-1.0); EOSINOPHILS ABSOLUTE AUTO 0.3 K/mm3 (0.0-0.4); EOSINOPHILS PERCENT AUTO 2.8 % (0.0-6.0); HEMATOCRIT 37.2 % (42.0-52.0); HEMOGLOBIN 12.3 gm/dl (14.0-18.0); IMMATURE GRAN ABSOLUTE AUTO 0.04 K/mm3 (0.00-0.05); IMMATURE GRAN PERCENT AUTO 0.4 % (0.0-0.4); LYMPHOCYTES ABSOLUTE AUTO 1.3 K/mm3 (1.0-4.8); LYMPHOCYTES PERCENT AUTO 12.1 % (24.0-44.0); MEAN CORPUSCULAR HEMOGLOBIN 29.6 pg (28.0-32.0); MEAN CORPUSCULAR HGB CONC 33.1 g/dl (32.0-36.0); MEAN CORPUSCULAR VOLUME 89.6 fl (83.0-99.0); MEAN PLATELET VOLUME 9.1 fl (9.4-12.4); MONOCYTES ABSOLUTE AUTO 0.8 K/mm3 (0.0-0.8); MONOCYTES PERCENT AUTO 7.3 % (0.0-8.0); NEUTROPHILS ABSOLUTE AUTO 8.1 K/mm3 (1.8-7.7); NEUTROPHILS PERCENT AUTO 76.9 % (41.0-71.0); PLATELET COUNT,PLT 212 K/mm3 (150-400); RED BLOOD CELL COUNT 4.15 M/mm3 (4.52-5.90); WHITE BLOOD CELL COUNT,WBC 10.53 K/mm3 (3.9-11.3)
[2023-03-21 12:27] LABS: APPEARANCE,URINE CLEAR (Clear); BILIRUBIN,URINE NEGATIVE (Negative); COLOR,URINE LIGHT YELLOW (Yellow); GLUCOSE,URINE NEGATIVE (Negative); KETONES,URINE NEGATIVE (Negative); LEUKOCYTE ESTERASE,URINE NEGATIVE (Negative); NITRITE,URINE NEGATIVE (Negative); OCCULT BLOOD,URINE 1+ (Negative); PROTEIN,URINE 2+ (Negative); UROBILINOGEN,URINE 0.2 (0.2-1.0)
[2023-03-21 12:38] LABS: A/G RATIO 0.7 (1-2); ALBUMIN 2.8 g/dl (3.4-5.0); ANION GAP 13.3 (5-15); BILIRUBIN TOTAL 1.1 mg/dL (0.2-1.0); BUN/CREATININE RATIO 19.4 (14-18); CREATININE 1.6 mg/dL (0.7-1.3); EST CRCL DRUG DOSING (CG) 32.06 mL/min; POTASSIUM,K 3.3 mEq/L (3.5-5.1); PROTEIN TOTAL,TP 6.9 g/dl (6.4-8.2)
[2023-03-21 13:02] LABS: SQUAMOUS EPITHELIAL CELLS,UR 0-5 /hpf (0-5); WBC,URINE 0-5 /hpf (0-5)
[2023-03-21 13:03] LABS: BACTERIA,URINE FEW /hpf (FEW); HYALINE CASTS,URINE 0-5 /lpf (0-5); MUCUS,URINE FEW /hpf (FEW)
[2023-03-21] MEDS ORDERED: Aspirin 81 MG Tab.Chew PO ONE (14:02)
[2023-03-21] MEDS ORDERED: Heparin Sodium 5,000 Units/ML Vial IVPUSH ONE (14:02)
[2023-03-21] MEDS ORDERED: Heparin Sodium/D5W 25,000 UNITS/500 ML BAG IV SCH (14:15)
[2023-03-21 17:47] VITALS: BP 172/95; PULSE 68
== END 2023-03-21 17:35 ==
LOC: JD.ED 10:39
DX: I21.4 Non-ST elevation (NSTEMI) myocardial infarction (principal); R53.1 Weakness; R41.0 Disorientation, unspecified; I25.10 Atherosclerotic heart disease of native coronary artery without angina pectoris; I48.91 Unspecified atrial fibrillation; I13.0 Hypertensive heart and chronic kidney disease with heart failure and stage 1 through stage 4 chronic kidney disease, or unspecified chronic kidney disease; I50.9 Heart failure, unspecified; N18.30 Chronic kidney disease, stage 3 unspecified; E78.00 Pure hypercholesterolemia, unspecified; Z79.01 Long term (current) use of anticoagulants; Z79.82 Long term (current) use of aspirin; Z79.899 Other long term (current) drug therapy; Z88.1 Allergy status to other antibiotic agents
CPT/HCPCS: 36415; 70450; 71045; 73130; 80053; 81001; 84484; 85025; 86140; 93005; 96365; 96366; 99285; A9270; J1644; 93010

== ENCOUNTER 2024-02-17 23:41 | Emergency (ER) | payer MEDICARE, BC ==
[2024-02-18] MEDS: Loratadine 10 MG Tab PO ONE (00:16)
[2024-02-18 00:58] VITALS: BP 140/85; PULSE 60
== END 2024-02-18 01:12 | disposition home or self-care (01) ==
LOC: JD.ED 23:41
DX: I48.91 Unspecified atrial fibrillation (principal); J30.9 Allergic rhinitis, unspecified; I11.0 Hypertensive heart disease with heart failure; R50.9 Fever, unspecified; I25.10 Atherosclerotic heart disease of native coronary artery without angina pectoris; Z90.49 Acquired absence of other specified parts of digestive tract; Z79.899 Other long term (current) drug therapy; Z88.1 Allergy status to other antibiotic agents
CPT/HCPCS: 71046; 93005; 99285; A9270; 93010; 99283

== ENCOUNTER 2024-11-01 15:10 | Inpatient (IN) | payer MEDICARE, BC ==
[2024-11-01 16:06] LABS: BASOPHILS ABSOLUTE AUTO 0.1 K/mm3 (0.0-0.2); BASOPHILS PERCENT AUTO 0.6 % (0.0-1.0); EOSINOPHILS ABSOLUTE AUTO 1.2 K/mm3 (0.0-0.4); EOSINOPHILS PERCENT AUTO 9.6 % (0.0-6.0); HEMATOCRIT 40.8 % (42.0-52.0); HEMOGLOBIN 12.6 gm/dl (14.0-18.0); IMMATURE GRAN ABSOLUTE AUTO 0.07 K/mm3 (0.00-0.05); IMMATURE GRAN PERCENT AUTO 0.5 % (0.0-0.4); LYMPHOCYTES ABSOLUTE AUTO 1.8 K/mm3 (1.0-4.8); LYMPHOCYTES PERCENT AUTO 13.9 % (24.0-44.0); MEAN CORPUSCULAR HEMOGLOBIN 27.6 pg (28.0-32.0); MEAN CORPUSCULAR HGB CONC 30.9 g/dl (32.0-36.0); MEAN CORPUSCULAR VOLUME 89.3 fl (83.0-99.0); MONOCYTES ABSOLUTE AUTO 0.9 K/mm3 (0.0-0.8); MONOCYTES PERCENT AUTO 7.3 % (0.0-8.0); NEUTROPHILS ABSOLUTE AUTO 8.8 K/mm3 (1.8-7.7); NEUTROPHILS PERCENT AUTO 68.1 % (41.0-71.0); PLATELET COUNT,PLT 216 K/mm3 (150-400); RED BLOOD CELL COUNT 4.57 M/mm3 (4.52-5.90); WHITE BLOOD CELL COUNT,WBC 12.92 K/mm3 (3.9-11.3)
[2024-11-01 16:13] LABS: INR 1.13; PROTHROMBIN TIME 11.9 SECONDS (9.7-12.0)
[2024-11-01 16:17] LABS: BASE EXCESS ARTERIAL 2.6 (-2-2.0); BICARBONATE,ARTERIAL 27.2 meq/L (22.0-26.0)
[2024-11-01 16:26] LABS: A/G RATIO 0.6 (1-2); ALBUMIN 2.9 g/dl (3.4-5.0); ANION GAP 12.4 (5-15); BILIRUBIN TOTAL 0.5 mg/dL (0.2-1.0); BUN/CREATININE RATIO 19.6 (14-18); CALCIUM 8.9 mg/dL (8.5-10.1); CREATININE 2.6 mg/dL (0.7-1.3); EST CRCL DRUG DOSING (CG) 17.08 mL/min; MAGNESIUM 2.4 mg/dL (1.8-2.4); POTASSIUM,K 4.4 mEq/L (3.5-5.1); PROTEIN TOTAL,TP 7.8 g/dl (6.4-8.2)
[2024-11-01] MEDS: Furosemide 40 MG/4 ML VIAL IVPUSH ONE (17:31)
[2024-11-01 17:40] LABS: APPEARANCE,URINE CLOUDY (Clear); BILIRUBIN,URINE 1+ (Negative); COLOR,URINE AMBER (Yellow); GLUCOSE,URINE NEGATIVE (Negative); KETONES,URINE NEGATIVE (Negative); LEUKOCYTE ESTERASE,URINE TRACE (Negative); NITRITE,URINE NEGATIVE (Negative); OCCULT BLOOD,URINE 3+ (Negative); PROTEIN,URINE 3+ (Negative)
[2024-11-01 18:41] LABS: BACTERIA,URINE FEW /hpf (FEW); EPITHELIAL CELLS,URINE 0-5 /hpf (0-5); MUCUS,URINE FEW /hpf (FEW); RBC,URINE TOO NUMEROUS TO CNT /hpf (0-5); WBC,URINE 30-40 /hpf (0-5)
[2024-11-01 19:42] LABS: CREATININE,URINE RAND 28.1 mg/dL (30.0-125.0); PROTEIN CREATININE RATIO,URINE 8868.3 mg/g (0-149); PROTEIN,URINE RANDOM 249.2 mg/dL (0.0-11.8)
[2024-11-01] MEDS: cefTRIAXone 1 GM Vial IVPUSH SCH ×2 (20:27→20:28)
[2024-11-01] MEDS: Acetaminophen 325 MG Tab PO PRN (20:28)
[2024-11-01] MEDS: Apixaban 2.5 MG Tab PO SCH (20:29)
[2024-11-02 06:03] LABS: BASOPHILS ABSOLUTE AUTO 0.1 K/mm3 (0.0-0.2); BASOPHILS PERCENT AUTO 0.4 % (0.0-1.0); EOSINOPHILS ABSOLUTE AUTO 0.5 K/mm3 (0.0-0.4); EOSINOPHILS PERCENT AUTO 3.9 % (0.0-6.0); HEMATOCRIT 37.1 % (42.0-52.0); HEMOGLOBIN 11.7 gm/dl (14.0-18.0); IMMATURE GRAN ABSOLUTE AUTO 0.07 K/mm3 (0.00-0.05); IMMATURE GRAN PERCENT AUTO 0.5 % (0.0-0.4); LYMPHOCYTES PERCENT AUTO 15.6 % (24.0-44.0); MEAN CORPUSCULAR HEMOGLOBIN 27.5 pg (28.0-32.0); MEAN CORPUSCULAR HGB CONC 31.5 g/dl (32.0-36.0); MEAN CORPUSCULAR VOLUME 87.3 fl (83.0-99.0); MEAN PLATELET VOLUME 9.3 fl (9.4-12.4); MONOCYTES ABSOLUTE AUTO 1.1 K/mm3 (0.0-0.8); MONOCYTES PERCENT AUTO 8.1 % (0.0-8.0); NEUTROPHILS ABSOLUTE AUTO 9.3 K/mm3 (1.8-7.7); NEUTROPHILS PERCENT AUTO 71.5 % (41.0-71.0); PLATELET COUNT,PLT 186 K/mm3 (150-400); RED BLOOD CELL COUNT 4.25 M/mm3 (4.52-5.90); WHITE BLOOD CELL COUNT,WBC 12.98 K/mm3 (3.9-11.3)
[2024-11-02] MEDS: Furosemide 40 MG/4 ML VIAL IVPUSH SCH (06:18)
[2024-11-02 06:48] LABS: ANION GAP 12.6 (5-15); BUN/CREATININE RATIO 21.9 (14-18); CALCIUM 8.9 mg/dL (8.5-10.1); CREATININE 2.6 mg/dL (0.7-1.3); EST CRCL DRUG DOSING (CG) 17.08 mL/min; POTASSIUM,K 3.6 mEq/L (3.5-5.1)
[2024-11-02] MEDS: Digoxin 125 MCG Tab PO SCH (08:46)
[2024-11-02] MEDS: Aspirin 81 MG Tab.EC PO SCH (08:46)
[2024-11-02] MEDS: Carvedilol 12.5 MG Tab PO SCH (20:24)
[2024-11-03 05:32] LABS: ANION GAP 12.2 (5-15); BUN/CREATININE RATIO 22.1 (14-18); CALCIUM 9.1 mg/dL (8.5-10.1); CREATININE 2.4 mg/dL (0.7-1.3); EST CRCL DRUG DOSING (CG) 18.51 mL/min; POTASSIUM,K 3.2 mEq/L (3.5-5.1)
[2024-11-03 05:42] LABS: BASOPHILS ABSOLUTE AUTO 0.1 K/mm3 (0.0-0.2); BASOPHILS PERCENT AUTO 0.6 % (0.0-1.0); HEMATOCRIT 40.4 % (42.0-52.0); HEMOGLOBIN 12.9 gm/dl (14.0-18.0); IMMATURE GRAN ABSOLUTE AUTO 0.05 K/mm3 (0.00-0.05); IMMATURE GRAN PERCENT AUTO 0.4 % (0.0-0.4); LYMPHOCYTES ABSOLUTE AUTO 2.1 K/mm3 (1.0-4.8); LYMPHOCYTES PERCENT AUTO 18.3 % (24.0-44.0); MEAN CORPUSCULAR HEMOGLOBIN 27.5 pg (28.0-32.0); MEAN CORPUSCULAR HGB CONC 31.9 g/dl (32.0-36.0); MEAN CORPUSCULAR VOLUME 86.1 fl (83.0-99.0); MEAN PLATELET VOLUME 9.4 fl (9.4-12.4); MONOCYTES ABSOLUTE AUTO 0.9 K/mm3 (0.0-0.8); MONOCYTES PERCENT AUTO 7.9 % (0.0-8.0); NEUTROPHILS ABSOLUTE AUTO 7.3 K/mm3 (1.8-7.7); NEUTROPHILS PERCENT AUTO 63.8 % (41.0-71.0); PLATELET COUNT,PLT 188 K/mm3 (150-400); RED BLOOD CELL COUNT 4.69 M/mm3 (4.52-5.90)
[2024-11-03] MEDS: Rosuvastatin 10 MG Tab PO SCH (08:26)
[2024-11-03] MEDS: Potassium Chloride 20 MEQ Tab.ER PO ONE (08:39)
[2024-11-03 10:18] LABS: HEMOGLOBIN A1C 6.6 %
[2024-11-03 13:25] VITALS: BP 107/67; PULSE 85
== END 2024-11-03 13:43 | DRG 280 ==
LOC: JD.ED 15:10 → JD.MS 18:12
PROVIDERS: ADMIT Family Medicine; ATTEND Family Medicine
PROC: 4A033R1 Measurement of Arterial Saturation, Peripheral, Percutaneous Approach (ICD-10-PCS; principal; 2024-11-01)
DX: I13.0 Hypertensive heart and chronic kidney disease with heart failure and stage 1 through stage 4 chronic kidney disease, or unspecified chronic kidney disease (principal); J96.01 Acute respiratory failure with hypoxia; N18.9 Chronic kidney disease, unspecified; I21.A1 Myocardial infarction type 2; I48.91 Unspecified atrial fibrillation; I48.20 Chronic atrial fibrillation, unspecified; N18.4 Chronic kidney disease, stage 4 (severe); Z88.8 Allergy status to other drugs, medicaments and biological substances; N17.9 Acute kidney failure, unspecified; N04.1 Nephrotic syndrome with focal and segmental glomerular lesions; N39.0 Urinary tract infection, site not specified; I50.9 Heart failure, unspecified; E78.00 Pure hypercholesterolemia, unspecified; K59.09 Other constipation; M81.0 Age-related osteoporosis without current pathological fracture; I42.9 Cardiomyopathy, unspecified; I73.9 Peripheral vascular disease, unspecified; I25.10 Atherosclerotic heart disease of native coronary artery without angina pectoris; Z95.1 Presence of aortocoronary bypass graft; Z95.2 Presence of prosthetic heart valve; Z79.01 Long term (current) use of anticoagulants; Z88.1 Allergy status to other antibiotic agents; Z79.899 Other long term (current) drug therapy; Z79.1 Long term (current) use of non-steroidal anti-inflammatories (NSAID); Z79.82 Long term (current) use of aspirin; Z87.19 Personal history of other diseases of the digestive system; Z86.73 Personal history of transient ischemic attack (TIA), and cerebral infarction without residual deficits; Z98.49 Cataract extraction status, unspecified eye; Z90.49 Acquired absence of other specified parts of digestive tract; Z98.890 Other specified postprocedural states
CPT/HCPCS: 36415; 36600; 71045; 80053; 81001; 82550; 82570; 82803; 83690; 83735; 83880; 84156; 84484; 85025; 85610; 87086; 93005; 96374; 99285; J1938; 80048; 83036; 84155; 84165; 86038; 93010; 93306; 94760; 94761; 97110-GP; 97116-GP; 97161-GP; 97530-GP; A9270-GY; J0696

== ENCOUNTER 2025-03-01 19:31 | Emergency (ER) | payer MEDICARE, BC ==
[2025-03-01 20:11] LABS: BASOPHILS ABSOLUTE AUTO 0.0 K/mm3 (0.0-0.2); BASOPHILS PERCENT AUTO 0.3 % (0.0-1.0); EOSINOPHILS ABSOLUTE AUTO 1.0 K/mm3 (0.0-0.4); EOSINOPHILS PERCENT AUTO 8.9 % (0.0-6.0); IMMATURE GRAN ABSOLUTE AUTO 0.06 K/mm3 (0.00-0.05); IMMATURE GRAN PERCENT AUTO 0.5 % (0.0-0.4); LYMPHOCYTES ABSOLUTE AUTO 2.0 K/mm3 (1.0-4.8); LYMPHOCYTES PERCENT AUTO 17.5 % (24.0-44.0); MEAN PLATELET VOLUME 9.6 fl (9.4-12.4); MONOCYTES ABSOLUTE AUTO 0.9 K/mm3 (0.0-0.8); MONOCYTES PERCENT AUTO 7.7 % (0.0-8.0); NEUTROPHILS ABSOLUTE AUTO 7.5 K/mm3 (1.8-7.7); NEUTROPHILS PERCENT AUTO 65.1 % (41.0-71.0); NRBC ABSOLUTE 0.00 (0.00-0.02); NRBC PERCENT 0.0 % (0.0-0.2); PLATELET COUNT,PLT 173 K/mm3 (150-400); RED BLOOD CELL COUNT 4.27 M/mm3 (4.52-5.90); WHITE BLOOD CELL COUNT,WBC 11.47 K/mm3 (3.9-11.3)
[2025-03-01] MEDS: Ondansetron 4 MG/2 ML SDV IVPUSH ONE (20:29)
[2025-03-01] MEDS: Acetaminophen/oxyCODONE 325-5 MG Tab PO ONE (20:29)
[2025-03-01 20:43] LABS: A/G RATIO 0.5 (1-2); ALANINE AMINOTRANSFERASE,ALT 26.0 U/L (16-63); ASPARTATE AMNIOTRANSFERASE,AST 20.0 U/L (15-37); BILIRUBIN TOTAL 0.6 mg/dL (0.2-1.0); BLOOD UREA NITROGEN,BUN 49.0 mg/dL (7-18); CARBON DIOXIDE,CO2 29.0 mEq/L (21-32); CHLORIDE,CL 104.0 mEq/L (98-107); CREATINE KINASE,CK 77.0 U/L (39-308); CREATININE 2.8 mg/dL (0.7-1.3); EST CRCL DRUG DOSING (CG) 15.86 mL/min; ESTIMATED GFR 21.0 mL/min (>60); GLUCOSE RANDOM 137.0 mg/dL (70-99); POTASSIUM,K 3.5 mEq/L (3.5-5.1); PROTEIN TOTAL,TP 7.2 g/dl (6.4-8.2); SODIUM,NA 143.0 mEq/L (136-145)
[2025-03-01 20:46] LABS: TROPONIN I HIGH SENSITIVITY 868.0 pg/mL (<=76)
[2025-03-02] MEDS ORDERED: Acetaminophen/HYDROcodone 325-5 MG Tab PO PRN (04:29)
[2025-03-02] MEDS: methylPREDNISolone Sodium Succinate 125 MG/2 ML SDV IVPUSH ONE (04:57)
[2025-03-02 09:32] VITALS: BP 117/82; PULSE 68
== END 2025-03-02 08:23 | disposition home or self-care (01) ==
LOC: JD.ED 19:31
DX: M79.642 Pain in left hand (principal); M10.9 Gout, unspecified; R41.0 Disorientation, unspecified; I13.0 Hypertensive heart and chronic kidney disease with heart failure and stage 1 through stage 4 chronic kidney disease, or unspecified chronic kidney disease; I50.9 Heart failure, unspecified; N18.4 Chronic kidney disease, stage 4 (severe); I48.91 Unspecified atrial fibrillation; Z79.01 Long term (current) use of anticoagulants; I25.10 Atherosclerotic heart disease of native coronary artery without angina pectoris; I25.2 Old myocardial infarction; Z88.1 Allergy status to other antibiotic agents; H54.7 Unspecified visual loss; I48.92 Unspecified atrial flutter; Z86.73 Personal history of transient ischemic attack (TIA), and cerebral infarction without residual deficits; Z79.899 Other long term (current) drug therapy; E78.00 Pure hypercholesterolemia, unspecified; E21.3 Hyperparathyroidism, unspecified; E66.9 Obesity, unspecified; Z95.1 Presence of aortocoronary bypass graft; Z98.49 Cataract extraction status, unspecified eye; Z90.49 Acquired absence of other specified parts of digestive tract; D72.829 Elevated white blood cell count, unspecified
CPT/HCPCS: 36415; 73100; 73120; 80053; 82550; 83605; 83735; 83880; 84484; 84550; 85025; 86140; 93005; 96361; 96374; 96375; 99285; A9270; C1758; J0696; J2405; J2919; J7030; 93010; 99284